=== PATIENT | female | born 1980 | race American Indian/Alaskan Native ===

== ENCOUNTER 2018-12-26 09:55 | Outpatient (CLI) | payer BC ==
[2019-01-03 12:52] LABS: AFP, Serum SEE SCANNED RESULT; Estradiol SEE SCANNED RESULT
[2019-01-03 12:53] LABS: Hx of Neural Tube Defect SEE SCANNED RESULT; Maternal Weight SEE SCANNED RESULT; Number of Fetuses SEE SCANNED RESULT
== END 2018-12-26 09:56 | disposition home or self-care (01) ==
LOC: LAB 09:55
PROVIDERS: ATTEND Obstetrics & Gynecology
DX: Z34.92 Encounter for supervision of normal pregnancy, unspecified, second trimester (principal)
CPT/HCPCS: 36415; 82106

== ENCOUNTER 2019-03-20 08:21 | Outpatient (CLI) | payer BC ==
[2019-03-20 08:54] LABS: Basophils % (Auto) 0.5 % (0.0-1.8); Eosinophils # (Auto) 0.2 K/mm3 (0.0-0.4); Eosinophils % (Auto) 2.6 % (0.0-4.3); Hematocrit 30.1 % (30.3-42.9); Lymphocytes # (Auto) 1.4 K/mm3 (1.2-5.4); Lymphocytes % (Auto) 19.3 % (13.4-35.0); Mean Corpuscular HGB Conc 33 % (30-34); Mean Corpuscular Volume 88 fl (79-97); Monocytes # (Auto) 0.4 K/mm3 (0.0-0.8); Monocytes % (Auto) 6.2 % (0.0-7.3); Platelet Count 160 K/mm3 (140-440); Red Blood Count 3.44 M/mm3 (3.65-5.03); Red Cell Distribution Width 14.8 % (13.2-15.2)
== END 2019-03-20 08:22 | disposition home or self-care (01) ==
LOC: LAB 08:21
PROVIDERS: ATTEND Obstetrics & Gynecology
DX: Z13.0 Encounter for screening for diseases of the blood and blood-forming organs and certain disorders involving the immune mechanism (principal); Z13.1 Encounter for screening for diabetes mellitus; E11.9 Type 2 diabetes mellitus without complications; R68.89 Other general symptoms and signs
CPT/HCPCS: 36415; 82951; 85025; 86592; 87806

== ENCOUNTER 2019-06-07 23:54 | Observation (INO) | payer BC ==
[2019-06-08 01:49] VITALS: BP 110/68
--- NOTE | 2019-06-08 06:21 | Ultrasound Report ---
US OB BPP wo non-stress, US OB limited INDICATION: well-being. COMPARISON: None available. FINDINGS: A single live intrauterine is seen with a heart rate of 135 bpm. The BPP score is 8 out of 8. IMPRESSION: Single live intrauterine with BPP score of 8/8. Signer Name: Abdulkadir Beltrán MD Signed: 06/08/2019 6:16 AM Workstation Name: [id number]
== END 2019-06-08 07:21 | disposition home or self-care (01) ==
LOC: TRG 23:54 → LD 06-08 01:18 → TRG 06-08 01:18
PROVIDERS: ADMIT Obstetrics & Gynecology; ATTEND Obstetrics & Gynecology
DX: O09.523 Supervision of elderly multigravida, third trimester (principal); Z3A.39 39 weeks gestation of pregnancy
CPT/HCPCS: 76815; 76819; G0378

== ENCOUNTER 2019-06-08 17:28 | Inpatient (IN) | payer BC ==
[2019-06-08] MEDS ORDERED: NUBAIN IV PRN (17:44)
[2019-06-08] MEDS ORDERED: NARCAN 0.4 MG/1 ML IV PRN (17:44)
[2019-06-08] MEDS ORDERED: ZOFRAN IV PRN ×2 (17:44→22:12)
[2019-06-08] MEDS ORDERED: STADOL IV PRN (17:44)
[2019-06-08] MEDS ORDERED: BRETHINE IVP PRN (17:44)
[2019-06-08] MEDS ORDERED: XYLOCAINE 2% INFILTRATI ONE ×3 (17:44→22:11)
[2019-06-08] MEDS ORDERED: MINERAL OIL PO PRN (17:44)
[2019-06-08] MEDS ORDERED: PHENERGAN PO PRN ×2 (17:44→22:12)
[2019-06-08] MEDS ORDERED: SUBLIMAZE IV PRN (17:44)
[2019-06-08] MEDS ORDERED: BRETHINE SUB-Q PRN (17:44)
[2019-06-08] MEDS ORDERED: METHERGINE IM PRN (17:46)
[2019-06-08] MEDS ORDERED: CYTOTEC PR PRN (17:47)
[2019-06-08] MEDS ORDERED: LACTATED RINGERS 1,000 ML IV SCH (18:00)
[2019-06-08] MEDS ORDERED: PITOCin/NS 20 UNIT/1000ML DRIP 20 UNITS/1,000 ML BAG IV SCH (18:00)
[2019-06-08] MEDS ORDERED: PITOCin/NS 30 UNIT/500ML 30 UNITS/500 ML BAG IV SCH ×2 (18:00)
[2019-06-08 18:30] LABS: Hematocrit 31.2 % (30.3-42.9); Hemoglobin 10.2 gm/dl (10.1-14.3); Mean Corpuscular HGB Conc 33 % (30-34); Mean Corpuscular Volume 83 fl (79-97); Platelet Count 189 K/mm3 (140-440); Red Blood Count 3.77 M/mm3 (3.65-5.03); Red Cell Distribution Width 17.2 % (13.2-15.2)
--- NOTE | 2019-06-08 18:40 | History and Physical Report ---
History of Present Illness Date of examination: 06/08/19 Date of admission: 06/08/19 17:28 Chief complaint: Contractions History of present illness: Pt is a 39 yo at 39 wks EGA who presents with contractions and cervical change. She reports positive movement and scant bloody show. Denies LOF. She has had care with [facility] detector operator. complicated by AMA, placental lakes, EIF with normal echo, and anemia. GBS negative. 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: abnormal PAP smear Family/Genetic History: none Social history: - Obstetrical History Expected Date of Delivery: 06/15/19 Actual Gestation: 39 Week(s) 0 Day(s) : 4 Para: 3 Hx # Term Pregnancies: 3 Number of Living Children: 3 Medications and Allergies Allergies Allergy/AdvReac Type Severity Reaction Status Date / Time No Known Allergies Allergy Verified 06/08/19 17:52 Active Meds: Active Medications Butorphanol Tartrate (Stadol) 2 mg IV Q2H PRN PRN Reason: Pain , Severe (7-10) Ephedrine Sulfate (Ephedrine Sulfate) 10 mg IV Q2M PRN PRN Reason: Hypotension Fentanyl (Sublimaze) 100 mcg IV Q2H PRN PRN Reason: Labor Pain Oxytocin/Sodium Chloride (Pitocin/Ns 20 Unit/1000ml Drip) 20 units in 1,000 mls @ 125 mls/hr IV DIRECT SHERWIN Oxytocin/Sodium Chloride (Pitocin/Ns 30 Unit/500ml) 30 units in 500 mls @ 1 mls/hr IV TITR SHERWIN; Protocol Oxytocin/Sodium Chloride (Pitocin/Ns 30 Unit/500ml) 30 units in 500 mls @ 2 mls/hr IV TITR SHERWIN; Protocol Lactated Ringer's (Lactated Ringers) 1,000 mls @ 125 mls/hr IV DIRECT SHERWIN Methylergonovine Maleate (Methergine) 0.2 mg IM Q4H PRN PRN Reason: Uterine Bleeding Mineral Oil (Mineral Oil) 30 ml PO QHS PRN PRN Reason: Constipation Misoprostol (Cytotec) 800 mcg IN PRN PRN PRN Reason: Uterine Bleeding Nalbuphine HCl (Nubain) 10 mg IV Q2H PRN PRN Reason: Pain, Moderate (4-6) Naloxone HCl (Narcan 0.4 Mg/1 Ml) 0.1 mg IV Q2MIN PRN PRN Reason: Res Rate </= 8 or 02 SAT < 92% Ondansetron HCl (Zofran) 4 mg IV Q8H PRN PRN Reason: Nausea And Vomiting Promethazine HCl (Phenergan) 25 mg PO Q6H PRN PRN Reason: Nausea And Vomiting Terbutaline Sulfate (Brethine) 0.25 mg SUB-Q ONCE PRN PRN Reason: Hyperstimulation/Hypertonicity Terbutaline Sulfate (Brethine) 0.25 mg IVP ONCE PRN PRN Reason: Hyperstimulation/Hypertonicity Review of Systems All systems: negative Cardiovascular: no chest pain, no shortness of breath - Physical Exam Abdomen: Positive: normal appearance, soft Genitourinary (Female): Positive: normal external genitalia, normal perenium Vagina: Positive: normal moisture Uterus: Positive: enlarged (gravid), normal contour Extremities: Positive: normal - Obstetrical FHR: auscultation normal, category 1 Uterine Contraction Monitor Mode: External (minimal to moderate variability, reactive) Cervical Dilatation: 6 Cervical Effacement Percentage: 50 station: -2 Uterine Contraction Frequency (min): 5 Uterine Contraction Pattern: Irregular Uterine Tone Measurement Phase: Contraction Uterine Contraction Intensity: Moderate Results Result Diagrams: 06/08/19 18:00 Abnormal lab results 06/08/19 Range/Units 18:00 MCH 27 L (28-32) pg RDW 17.2 H (13.2-15.2) % All other labs normal. Assessment and Plan A: 39 yo in active labor GBS negative Membranes intact Anemia P: Admit to L&D Expectant management, augment as needed Pain meds as requested Anticipate
--- NOTE | 2019-06-08 18:52 | Event Note ---
Date: 06/08/19 Irregular contraction pattern. Discussed risks and benefits of doing nothing, AROM, and/or Pitocin. Pt elects for AROM and Pitocin augmentation. AROM at 1830 clear fluid, tolerated well. Cervix /-2.
[2019-06-08] MEDS ORDERED: PERCOCET 5/325 PO PRN (22:12)
[2019-06-08] MEDS ORDERED: LANSINOH TP PRN (22:12)
[2019-06-08] MEDS ORDERED: DULCOLAX PR PRN (22:12)
[2019-06-08] MEDS ORDERED: TYLENOL PO PRN (22:12)
[2019-06-08] MEDS ORDERED: TUCKS PAD TP PRN (22:12)
[2019-06-08] MEDS ORDERED: MILK OF MAGNESIA PO PRN (22:12)
[2019-06-08] MEDS ORDERED: BENADRYL PO PRN (22:12)
[2019-06-08] MEDS ORDERED: PHENERGAN PR PRN (22:12)
--- NOTE | 2019-06-08 22:19 | Procedure Note ---
OB Delivery Note - Delivery Date of Delivery: 06/08/19 Surgeon: CECILY RESTREPO ([facility]) Estimated blood loss: 500cc - Vaginal Delivery presentation: vertex Delivery position: OA Intrapartum events: none Delivery induction: none Delivery augmentation: rupture of membranes, pitocin Delivery monitor: external FHT, external uterine Route of delivery: Delivery placenta: spontaneous Delivery cord: nuchal cord, 3 umbilical vessels Episiotomy: none Delivery laceration: 2nd degree Delivery repair: vicryl Anesthesia: local Delivery comments: Excellent maternal effort resulted in of vigorous female infant at 2138. Head delivered OA, restituted LOT. Shoulders followed easily. Somersaulted through nuchal cord x1. Cord clamped and cut at 2 minutes due to brisk bleeding. Cord blood collected. Placenta followed with trailing membranes at 2 minutes, intact. 3 golf-ball sized clots expressed with fundal massage. Pitocin infused IV after delivery of placenta. 2nd degree laceration noted, repaired to hemostasis. Bleeding stable and fundus firm 4 fb below umbilicus, EBL 500mL. Mother and bonding well, breast feeding. - Infant A at 1 minute: 8 at 5 minutes: 9 Gender: Female (Weight 7lb 10oz)
[2019-06-08] MEDS ORDERED: SODIUM CHLORIDE FLUSH SYRINGE 10 ML IV NR (23:00)
[2019-06-08] MEDS: IBUPROFEN PO SCH (23:17)
[2019-06-09] MEDS: IBUPROFEN PO SCH ×3 (05:44→18:27)
--- NOTE | 2019-06-09 08:14 | Progress Note ---
Assessment and Plan A: PPD#1 s/p at term PPH AMA P: Monitor bleeding with additional uterotonics as necessary. Routine care. Subjective - Subjective Date of service: 06/09/19 Principal diagnosis: s/p at term, PPH Interval history: Pt reports passage of clots once she got of bed this morning. Patient reports: appetite normal, voiding normally, pain well controlled, ambulating normally [place]: doing well Objective - Vital Signs Latest vital signs: Vital Signs Temp Pulse Resp BP Pulse Ox 06/09/19 05:44 18 06/09/19 05:16 98.4 F 74 98 06/09/19 05:04 20 121/80 06/09/19 02:05 18 06/09/19 01:14 98.4 F 20 122/82 06/09/19 00:23 73 99 H 100 06/08/19 23:56 79 143/94 06/08/19 23:50 74 138/91 06/08/19 23:34 78 158/93 06/08/19 23:19 86 139/97 06/08/19 23:04 78 136/90 06/08/19 23:03 78 130/85 06/08/19 22:56 85 134/92 06/08/19 22:49 95 H 136/89 06/08/19 22:35 82 147/94 06/08/19 22:21 80 148/87 06/08/19 22:20 96 H 154/92 06/08/19 22:19 85 166/82 06/08/19 22:05 90 151/99 06/08/19 20:12 73 128/78 06/08/19 18:00 98.6 F 14 Intake and Output 06/08/19 06/09/19 06/09/19 22:59 06:59 14:59 Other: Weight 71.668 kg Estimated Blood Loss 500 - Exam Breasts: Present: deferred Cardiovascular: Present: Regular rate Lungs: Present: Clear to auscultation Abdomen: Present: soft Uterus: Present: fundal height below umbilicus Extremities: Present: normal - Labs Labs: Abnormal lab results 06/08/19 Range/Units 18:00 MCH 27 L (28-32) pg RDW 17.2 H (13.2-15.2) %
[2019-06-09] MEDS: PRENATAL VITAMIN PO SCH (11:21)
[2019-06-09] MEDS: COLACE PO SCH ×2 (11:21→21:50)
[2019-06-09] MEDS: FEOSOL PO SCH ×2 (11:22→21:50)
[2019-06-09 12:09] LABS: Hematocrit 25.1 % (30.3-42.9); Hemoglobin 8.3 gm/dl (10.1-14.3); Mean Corpuscular HGB Conc 33 % (30-34); Mean Corpuscular Volume 81 fl (79-97); Platelet Count 169 K/mm3 (140-440); Red Blood Count 3.09 M/mm3 (3.65-5.03); Red Cell Distribution Width 16.8 % (13.2-15.2)
[2019-06-09 12:27] LABS: Alanine Aminotransferase 7 units/L (7-56); Uric Acid 2.8 mg/dL (3.5-7.6)
[2019-06-09] MEDS ORDERED: DERMOPLAST TP PRN (19:26)
[2019-06-09 23:03] LABS: Bilirubin,Urine NEG (Negative); Blood,Urine MOD (Negative); Color,Urine Yellow (Yellow); Mucus,Urine FEW /HPF; Protein,Urine <15 mg/dL mg/dL (Negative); Urobilinogen,Urine < 2.0 mg/dL (<2.0)
[2019-06-10] MEDS: IBUPROFEN PO SCH ×3 (00:20→11:17)
[2019-06-10] MEDS: FEOSOL PO SCH (11:17)
[2019-06-10] MEDS: PRENATAL VITAMIN PO SCH (11:17)
[2019-06-10] MEDS: COLACE PO SCH (11:17)
--- NOTE | 2019-06-10 12:34 | Progress Note ---
Assessment and Plan A: PPD2 s/p , vital signs stable, anemia P: Discharge to home today. Iron supplementation Subjective - Subjective Principal diagnosis: s/p at term, PPH Interval history: Pt was a 39 yo at 39 wks EGA who presented with contractions and cervical change. She reported positive movement and scant bloody show. Denied LOF. She had care with [facility] reference investigator. complicated by AMA, placental lakes, EIF with normal echo, and anemia. GBS negative. Now PPD2 s/p with hemorrhage EBL 500mL. Patient reports: appetite normal, voiding normally, pain well controlled, ambula ting normally : doing well, nursing well Objective - Vital Signs Latest vital signs: Vital Signs Temp Pulse Resp BP BP Pulse Ox 06/10/19 08:18 98.3 F 74 18 121/77 97 06/10/19 06:49 18 06/10/19 06:00 18 06/10/19 01:20 18 06/10/19 01:08 98.2 F 84 20 111/71 97 06/10/19 00:20 18 06/09/19 16:20 98 F 84 20 111/81 06/09/19 13:05 98.2 F 95 H 20 122/68 Intake and Output 06/09/19 06/10/19 06/10/19 23:59 07:59 15:59 Intake Total 960 360 Balance 960 360 Intake: Oral 480 Intake, Free Water 480 360 Other: Total, Intake Amount 120 # Voids Void 1 1 - Exam Breasts: Present: normal Cardiovascular: Present: Regular rate, Normal S1, Normal S2, No murmurs Lungs: Present: Clear to auscultation, Normal air movement Abdomen: Present: normal appearance, soft. Absent: distention, tenderness, guarding Uterus: Present: normal, firm, fundal height below umbilicus. Absent: bogginess, tenderness Extremities: Present: normal
--- NOTE | 2019-06-10 12:37 | Discharge Summary ---
Providers - Providers Date of Admission: 06/08/19 17:28 Date of discharge: 06/10/19 Attending physician: LEIGH KELLER MD Primary care physician: LEIGH KELLER MD Hospitalization Reason for admission: active labor Delivery: Episiotomy: none Laceration: 2nd degree Other procedures: none complications: perineal laceration, other ( hemorrhage ebl 500mL) Discharge diagnosis: IUP at term delivered baby: female Condition at discharge: Good Disposition: DC-01 TO HOME OR SELFCARE Plan - Discharge Medications Prescriptions: Ferrous Sulfate [Feosol 325 MG tab] 325 mg PO BID #60 tablet Ibuprofen [Motrin] 800 mg PO Q8HR PRN #30 tablet PRN Reason: Pain, Moderate (4-6) HYDROcodone/APAP 5-325 [[place] 5/325] 1 each PO Q6HR PRN #20 tablet PRN Reason: Pain - Provider Discharge Summary Activity: routine, no sex for 6 weeks, no heavy lifting 4 weeks, no strenuous exercise Diet: routine Instructions: routine Additional instructions: [] Smoking cessation referral if applicable(refer to patient education folder for contact #) [] Refer to [facility] Booklet Call your doctor immediately for: * Fever > 100.5 * Heavy vaginal bleeding ( >1 pad per hour) * Severe persistent headache * Shortness of breath * Reddened, hot, painful area to leg or breast * Drainage or odor from incision. * Keep incision clean and dry at all times and follow doctor's instructions regarding bathing/showering - Follow up plan Follow up: LEIGH KELLER MD [Primary Care Provider] - 7 Days (Call to schedule BP check in 7 days, and visit in 6 weeks.) Forms: [facility] Discharge Summary, Discharge Signature Page
[2019-06-10 14:35] VITALS: BP 126/87
== END 2019-06-10 16:15 | disposition home or self-care (01) | DRG 806 ==
LOC: LD 17:28 → OB 06-09 01:31
PROVIDERS: ADMIT Obstetrics & Gynecology; ATTEND Obstetrics & Gynecology
PROC: 10E0XZZ Delivery of Products of Conception, External Approach (ICD-10-PCS; principal; 2019-06-08)
PROC: 0KQM0ZZ Repair Perineum Muscle, Open Approach (ICD-10-PCS; 2019-06-08)
DX: O99.02 Anemia complicating childbirth (principal); O72.1 Other immediate postpartum hemorrhage; Z37.0 Single live birth; D64.9 Anemia, unspecified; O69.81X0 Labor and delivery complicated by cord around neck, without compression, not applicable or unspecified; O70.1 Second degree perineal laceration during delivery; Z3A.39 39 weeks gestation of pregnancy
CPT/HCPCS: 36415; 81001; 82565; 83615; 84450; 84460; 84550; 85014; 85018; 85027; G0378; J2210; J2590; J3010; J7120

== ENCOUNTER 2019-11-02 12:56 | Outpatient (CLI) | payer BC ==
[2019-11-02 13:19] LABS: Hematocrit 39.3 % (30.3-42.9); Hemoglobin 13.2 gm/dl (10.1-14.3); Mean Corpuscular HGB Conc 34 % (30-34); Mean Corpuscular Volume 78 fl (79-97); Platelet Count 145 K/mm3 (140-440); Red Blood Count 5.04 M/mm3 (3.65-5.03); Red Cell Distribution Width 18.7 % (13.2-15.2)
[2019-11-02 13:43] LABS: Alanine Aminotransferase 18 units/L (7-56); Albumin 4.8 g/dL (3.9-5); BUN/Creatinine Ratio 16; Blood Urea Nitrogen 13 mg/dL (7-17); Calcium 9.4 mg/dL (8.4-10.2); Chol/HDL Ratio 1.93 %; HDL Cholesterol 112 mg/dL (40-59); Hemolysis Index 5; LDL Cholesterol,Direct 104 mg/dL (50-130)
[2019-11-02 13:52] LABS: Free T4 (Free Thyroxine) 0.96 ng/dL (0.76-1.46)
--- NOTE | 2019-11-02 14:41 | XRay Report ---
BILATERAL HANDS 6 VIEWS INDICATION / CLINICAL INFORMATION: BILATERAL HAND PAIN COMPARISON: None available. FINDINGS: BONES and JOINT(S): No acute fracture or subluxation. No significant arthritis. Bone density is casi l. SOFT TISSUES: No significant abnormality. ADDITIONAL FINDINGS: None. IMPRESSION: No significant abnormality of the hands. Signer Name: Abdulkadir Beltrán MD Signed: 11/02/2019 2:37 PM Workstation Name: [id number]
--- NOTE | 2019-11-02 14:41 | XRay Report ---
LEFT HIP 2 VIEWS INDICATION / CLINICAL INFORMATION: M25.552 PAIN IN LEFT HIP COMPARISON: None available. FINDINGS: BONES / JOINT(S): The hip and SI joint spaces are well-maintained. There are mild degenerative change s involving the pubic symphysis. There is no evidence of fracture, dislocation, destructive lesion or other significant abnormality. SOFT TISSUES: No significant abnormality. ADDITIONAL FINDINGS: None. Signer Name: Baldemar Huerta MD Signed: 11/02/2019 2:36 PM Workstation Name: [id number]
[2019-11-05 14:36] LABS: ANA Screen, IFA Negative (Negative)
== END 2019-11-02 12:57 | disposition home or self-care (01) ==
LOC: XRAY 12:56
PROVIDERS: ATTEND Internal Medicine
DX: M16.12 Unilateral primary osteoarthritis, left hip (principal); Z13.220 Encounter for screening for lipoid disorders; Z13.21 Encounter for screening for nutritional disorder; I10 Essential (primary) hypertension; M79.641 Pain in right hand; M79.642 Pain in left hand
CPT/HCPCS: 36415; 80053; 80061; 82652; 83036; 84439; 84443; 85027; 86038